=== PATIENT | male | born 1950 | race Caucasian/White ===

== ENCOUNTER → 2019-12-16 11:09 | Outpatient (CLI) | payer OTHER, SELFPAY ==
[2019-12-17 20:00] LABS: COVID19 Sendout Not Detected (Not Detect)
== END ==
PROVIDERS: Visit Provider Physician Assistant
DX: Z11.59 Encounter for screening for other viral diseases (principal)
CPT/HCPCS: 87635

== ENCOUNTER 2021-07-09 12:51 | Emergency (ER) | payer OTHER, SELFPAY ==
[2021-07-09 13:21] VITALS: BP 148/64; PULSE 64; RESP 16; TEMP 36.6; O2SAT 98
--- NOTE | 2021-07-09 13:32 | PC.NURSE ---
cleaned wound with sterile water, reapplied wet to dry dressing with tegaderm for pressure to stop slow bleeding noted under bandaid patient arrived in.
--- NOTE | 2021-07-09 15:09 | DI.RAD.S_ITS ---
PROCEDURE: XR ANKLE RT MIN 3V INDICATIONS: Open wound, right ankle pain TECHNIQUE: 3 views of the ankle were acquired. COMPARISON: None. FINDINGS: Bones: Osteopenia. Pin within the lateral calcaneus. Small loose body suspected in the medial aspect of the tibiotalar joint. No acute fractures or dislocations. Ankle mortise is normally aligned. Degenerative changes present. No suspicious bony lesions. Soft tissues: Irregularity at the medial malleolus soft tissues. No underlying sclerosis or erosion is seen. No tibiotalar joint effusion. Achilles tendon appears normal. IMPRESSION: Suspect wound at the medial malleolus. No underlying osseous erosion or sclerosis demonstrated. MRI or three-phase bone scan could be considered for further evaluation for osteomyelitis. Bones appear osteopenic and there is degenerative change with suspected loose bodies at the medial aspect of the tibiotalar joint. Dictated by: Sid Tracy M.D. on 07/09/2021 at 15:51 Approved by: Sid Tracy M.D. on 07/09/2021 at 15:54
--- NOTE | 2021-07-09 15:22 | ED_ITS ---
HPI - Wound/Laceration <Joey Montgomery PA-C - Last Filed: 07/09/21 19:41> General Chief Complaint: Wound/Laceration Stated Complaint: Dropped 40lbs Bike Rack on Rt Ankle, Laceration Time Seen by Provider: 07/09/21 14:33 Mode of arrival: Family Vehicle History of Present Illness HPI narrative: Patient is a 71-year-old male presenting to the emergency department today for evaluation of a right ankle injury. He states that earlier today he accidentally dropped a 40 lb bike rack on to his right ankle, sustaining a laceration to the medial aspect of his right ankle. He states that he has been able to ambulate without difficulty and denies significant pain, however he states he came to the emergency department concern for the wound on his ankle. Of note, patient states that he does have a history of orthopedic surgery on the right ankle. He denies any injury or pain elsewhere. No fevers, chills, chest pain, cough, shortness of breath, nausea, vomiting, diarrhea, abdominal pain, constipation, dysuria, hematuria, numbness and tingling in lower extremities, or any other concerning symptoms reported. No further concerns are voiced at this time. Related Data Previous Rx's Medication Instructions Recorded cephalexin 500 mg capsule 500 mg PO QID #28 cap 07/09/21 Allergies Allergy/AdvReac Type Severity Reaction Status Date / Time No Known Drug Allergies Allergy Verified 07/09/21 13:31 Review of Systems <Joey Montgomery PA-C - Last Filed: 07/09/21 19:41> Constitutional Constitutional: Denies chills, Denies fatigue, Denies fever(s), Denies frequent falls, Denies lethargy and Denies weakness Eyes Eyes: Denies loss of vision ENT Ears, Nose, Mouth, and Throat: Denies dizziness and Denies neck pain Cardiovascular Cardiovascular: Denies chest pain, Denies irregular heart rhythm, Denies lightheadedness, Denies palpitations, Denies dyspnea, Denies dyspnea on exertion and Denies orthopnea Respiratory Respiratory: Denies cough, Denies dyspnea, Denies dyspnea on exertion and Denies wheezing Gastrointestinal Gastrointestinal: Denies abdominal pain, Denies change in bowel habits, Denies diarrhea, Denies nausea and Denies vomiting Genitourinary Genitourinary: Denies hematuria, Denies flank pain, Denies urinary incontinence and Denies urinary urgency Musculoskeletal Musculoskeletal: Denies back pain, Denies muscle weakness, Denies neck pain, Denies numbness and Denies tingling Integumentary/Breasts Skin/Breast: Denies pruritus, Denies erythema, Denies rash and Reports wounds (Right ankle laceration) Neurologic Neurologic: Denies behavioral changes, Denies confusion, Denies dizziness, Denies frequent falls, Denies loss of vision, Denies numbness, Denies tingling and Denies weakness Psychiatric Psychiatric: Denies behavioral changes and Denies confusion Endocrine Endocrine: Denies fatigue and Denies palpitations Allergic/Immunologic Allergic/Immunologic: Denies wheezing Patient History <Joey Montgomery PA-C - Last Filed: 07/09/21 19:41> Social History Smoking Status: Never smoker Smoking Status: Never smoker alcohol intake frequency: a few times a week Substance Use Type: marijuana Exam <Joey Montgomery PA-C - Last Filed: 07/09/21 19:41> Narrative Exam Narrative: GENERAL: 71 year old patient appears stated age. Well-developed patient, in no acute distress. HEAD: Atraumatic. Normocephalic. EYES: Pupils equal round and reactive. Extraocular motions intact. No scleral icterus. No injection or drainage. ENT: Nose without bleeding, purulent drainage. Throat without erythema, tonsillar hypertrophy or exudate. Airway patent. NECK: Trachea midline. Non tender CARDIOVASCULAR: Regular rate and rhythm without murmurs, gallops, or rubs. RESPIRATORY: Clear to auscultation. Breath sounds equal bilaterally. No wheezes, rales, or rhonchi. GASTROINTESTINAL: Abdomen soft, non-tender, nondistended. EXTREMITIES: No edema or joint tenderness. DP pulse palpated on the right. BACK: Nontender without deformity or crepitance. No flank tenderness. NEURO: AOx3. Good sensation light touch appreciated throughout the bilateral lower extremities. Gross motor function intact throughout the bilateral lower extremities. SKIN: No rash or erythema of visible areas. Skin flap laceration noted to the medial aspect of the right ankle with bone exposure. No significant bleeding noted, no active discharge appreciated. No form body appears or change within the wound on gross examination. No significant tissue swelling surrounding the wound. Initial Vital Signs Initial Vital Signs: Vital Signs Temperature 97.8 F 07/09/21 13:21 Pulse Rate 64 07/09/21 13:21 Respiratory Rate 16 07/09/21 13:21 Blood Pressure 148/64 H 07/09/21 13:21 Pulse Oximetry 98 07/09/21 13:21 <Kishor Kaur DO - Last Filed: 07/11/21 10:22> Initial Vital Signs Initial Vital Signs: Vital Signs Temperature 97.8 F 07/09/21 13:21 Pulse Rate 64 07/09/21 13:21 Respiratory Rate 16 07/09/21 13:21 Blood Pressure 148/64 H 07/09/21 13:21 Pulse Oximetry 98 07/09/21 13:21 Procedures <AJAY Guo Last Filed: 07/09/21 19:41> Laceration Repair Laceration 1: Time of procedure: 17:47 Site: lower extremity (Right medial ankle) Side (If applicable): right Size (cm): 2.5 Description: other (V shaped flap) Depth: simple, single layer Local Anesthetic: lidocaine 1% Amount of anesthesia used (mL): 8 Pre-repair: wound explored, irrigated extensively and deep structures intact Skin layer closed with: nylon Size (cm): 4-0 Number of sutures: 5 Technique: simple, interrupted Course <AJAY Guo Last Filed: 07/09/21 19:41> Course Course Narrative: X-ray of right ankle obtained. Orders Ordered: Discontinued Medications Diphtheria/Tetanus/Acell Pertussis (Tet,Diph,Pertuss(Acell),Vac/Pf 0.5 Ml Syringe) 0.5 ml IM .ONCE ONE Stop: 07/09/21 15:16 Last Admin: 07/09/21 16:00 Dose: 0.5 ml Documented by: YENNIFER Lidocaine/Sodium Bicarbonate (Lido 1%/Sod Bicarb 8.4% (10ml) 10 Ml Syringe) 10 ml INJ NOW ONE Stop: 07/09/21 16:54 Last Admin: 07/09/21 17:07 Dose: 10 ml Documented by: BRETT Vital Signs Vital signs: Vital Signs - 8 hr 07/09/21 13:21 Temperature 97.8 F Pulse Rate 64 Respiratory Rate 16 Blood Pressure 148/64 H Pulse Oximetry 98 <Kishor Kaur DO - Last Filed: 07/11/21 10:22> Orders Ordered: Discontinued Medications Diphtheria/Tetanus/Acell Pertussis (Tet,Diph,Pertuss(Acell),Vac/Pf 0.5 Ml Syringe) 0.5 ml IM .ONCE ONE Stop: 07/09/21 15:16 Last Admin: 07/09/21 16:00 Dose: 0.5 ml Documented by: YENNIFER Lidocaine/Sodium Bicarbonate (Lido 1%/Sod Bicarb 8.4% (10ml) 10 Ml Syringe) 10 ml INJ NOW ONE Stop: 07/09/21 16:54 Last Admin: 07/09/21 17:07 Dose: 10 ml Documented by: BRETT Vital Signs Vital signs: Vital Signs - 8 hr 07/09/21 13:21 Temperature 97.8 F Pulse Rate 64 Respiratory Rate 16 Blood Pressure 148/64 H Pulse Oximetry 98 MDM - Wound/Laceration <Joey Montgomery PA-C - Last Filed: 07/09/21 19:41> Imaging Data Extremity x-ray #1: Radiologist's Impression: PROCEDURE:? XR ANKLE RT MIN 3V ? INDICATIONS:? Open wound, right ankle pain ? TECHNIQUE:? 3 views of the ankle were acquired.? ? COMPARISON:? None. ? FINDINGS:? ? Bones:? Osteopenia.? Pin within the lateral calcaneus.? Small loose body suspected in the medial aspect of the tibiotalar joint.? No acute fractures or dislocations.? Ankle mortise is normally aligned.? Degenerative changes present.? No suspicious bony lesions.? ? ? Soft tissues:? Irregularity at the medial malleolus soft tissues.? No underlying sclerosis or erosion is seen.? No tibiotalar joint effusion.? Achilles tendon appears normal.? ? ? IMPRESSION:? Suspect wound at the medial malleolus.? No underlying osseous erosion or sclerosis demonstrated. ? MRI or three-phase bone scan could be considered for further evaluation for osteomyelitis. ? Bones appear osteopenic and there is degenerative change with suspected loose bodies at the medial aspect of the tibiotalar joint. ? Dictated by: Sid Tracy M.D. on 07/09/2021 at 15:51 ? ? Approved by: Sid Tracy M.D. on 07/09/2021 at 15:54 ? MDM Narrative Medical decision making narrative: Differential diagnosis considered but not limited to fracture versus dislocation versus sprain versus strain versus deep tissue laceration versus superficial sk in laceration versus tendon rupture. Discussed results of x-ray with patient and informed him that no acute bony abnormality was identified such as fracture or dislocation. The laceration was cleaned with chlorhexidine and irrigated with extensive amount of normal saline rinse. Wound was anesthetized with 1% buffered lidocaine and 5 sutures were used to close the wound with close approximation. Patient tolerated the procedure well and states that this time he is comfortable being discharged home. Patient is stable for discharge at this time. I discussed wound care instructions with the patient. Sutures are to remain in place for 7-10 days hand should be evaluated by medical professional here in the emergency department, at urgent care, or with primary care prior to suture removal. Patient agrees to plan. Strict return precautions were discussed with the patient prior to discharge. Discharge Plan Departure Patient Disposition: Home Clinical Impression: Laceration of ankle, right Instructions: DI for Laceration Repair Activity Restrictions/Additional Instructions: *You have been diagnosed with right ankle laceration *What to do: *Please continue to take your regular medications as directed. [X] New medication prescriptions sent to your pharmacy: [facility] [place] - Keflex [ ] New medication written as a paper prescription [ ] No new medications given You were evaluated in the emergency department today for a right ankle lacera tion. X-ray imaging obtained in the emergency department today did not show signs of acute bony abnormality such as fracture or dislocation. The wound edges were brought together well with nylon sutures in the emergency department. The suture should remain in place for 7-10 days, ensure the UR evaluated by primary care provider here in the emergency department, at urgent care, or by her primary care provider prior to having the sutures removed. I have sent a antibiotic prescription to your preferred pharmacy. Ensure that you complete the entire course of antibiotics as directed. Please follow-up with the primary care provider within the next 2-3 days for further evaluation. Do not hesitate to return to the emergency department if you experience fever, discharge from the laceration site, swelling from the laceration site, or any other concerning symptoms. Avoid placing topical ointments over the laceration site or soaking the laceration site until completely healed. *Please follow up with your primary care provider in 2-3 days, call for an appointment. Let them know you were seen in the Emergency Department and that we ask that you be seen in follow up. We will electronically transmit a record of today's note if your PCP is in our system *If you do not have a primary care provider please contact the [facility] Resource line at [phone]. They will ask some questions about your medical history and help get you set up with a doctor in the community. *Return to Emergency Department if you should have any new, worsening or concerning symptoms, such as fever greater than 101 F, shaking chills, worsening pain, persistent vomiting or other bothersome symptoms. Prescriptions: New cephalexin 500 mg capsule 500 mg PO QID Qty: 28 0RF Referrals: Komal Grady MD [Primary Care Provider] - <Kishor Kaur DO - Last Filed: 07/11/21 10:22> Cosign ED Attending Dinoraature Attestation: I was immediately available in the department for consultation. This documentation has been reviewed and I agree with assessment and plan. Supervised by Kishor Kaur DO
--- NOTE | 2021-07-09 15:29 | PC.NURSE ---
good pedal pulse in the right foot.
[2021-07-09] MEDS: TET,DIPH,PERTUSS(ACELL),VAC/PF 0.5 ML SYRINGE IM (16:00)
[2021-07-09] MEDS: LIDO 1%/SOD BICARB 8.4% (10ML) 10 ML SYRINGE INJ (17:07)
== END 2021-07-09 18:18 | disposition home or self-care (01) ==
PROVIDERS: Emergency Provider Physician Assistant; PCP Student in an Organized Health Care Education/Training Program
DX: S91.011A Laceration without foreign body, right ankle, initial encounter (principal); Z23 Encounter for immunization; W20.8XXA Other cause of strike by thrown, projected or falling object, initial encounter
CPT/HCPCS: 12001; 73610; 90471; 99283; 99284; 90715